=== PATIENT | male | born 1980 | race Caucasian/White ===

== ENCOUNTER → 2016-09-13 | Outpatient (CLI) | payer OTHER ==
[2016-09-13 08:47] LABS: BASOPHIL % 0.4 % (0-2); PLATELET COUNT 177 x10^3mcL (130-400); RED CELL DISTRIBUTION WIDTH 13.5 % (11.5-14.5)
[2016-09-13 08:56] LABS: CALCIUM 9.1 mg/dL (8.5-10.1); CARBON DIOXIDE 24.6 mmol/L (21-32); CHLORIDE SERUM 106 mmol/L (98-107); CHOLESTEROL 183 mg/dL (<200); CHOLESTEROL/HDL RATIO 3.9; GFR1 > 60 mL/min; GLUCOSE SERUM 108 mg/dL (74-106); HDL CHOLESTEROL 47 mg/dL (40-60); POTASSIUM SERUM 4.2 mmol/L (3.5-5.1); SODIUM SERUM 141 mmol/L (136-145); TRIGLYCERIDES 98 mg/dL (<150)
== END | disposition home or self-care (01) ==
LOC: LB 08:11
PROVIDERS: Family Medicine
DX: Z13.1 Encounter for screening for diabetes mellitus (principal); Z13.0 Encounter for screening for diseases of the blood and blood-forming organs and certain disorders involving the immune mechanism; Z13.220 Encounter for screening for lipoid disorders; Z11.1 Encounter for screening for respiratory tuberculosis
CPT/HCPCS: 86480